=== PATIENT | female | born 1970 | race Hispanic/Latino ===

== ENCOUNTER 2018-02-07 11:34 | Emergency (ER) | payer OTHER ==
[~2018-02-07] VITALS: Ht 162.6 cm; Wt 78.0 kg
[~2018-02-07 11:34] MED LIST: AMOXICILLIN500 M2 PO; PREDNISONE20 MG PO; ULTRAM50 M1 PO; ZITHROMAX250 MG PO
[2018-02-07] MEDS ORDERED: AMLODIPINE5 MG PO (11:43)
[2018-02-07 12:36] LABS: IMMATURE GRANULOCYTES 0.2 % (0.0-1.0); MEAN CELL VOLUME 89.5 fL CALC (80.0-100.0); MEAN CORPUSCULAR HGB 29.7 pG CALC (26.0-32.0); MEAN CORPUSCULAR HGB CONC 33.3 g/L CALC (32.0-36.0); NEUT# 2.55 thou/uL (2.00-7.15); RED BLOOD COUNT 4.74 mill/uL (4.20-5.60)
[2018-02-07 12:41] LABS: HEMATOCRIT 42.4 % (37.0-47.0); HEMOGLOBIN 14.1 g/dl (12.0-16.0)
[2018-02-07 12:46] LABS: BUN 9 mg/dL (7-17); BUN/CREATININE RATIO 15 (12-20 (CALC)); CARBON DIOXIDE 27 mmol/l (22-30); CHLORIDE 105 mmol/l (95-108); CREATININE 0.6 mg/dL (0.5-1.0); GFR > 60 ML/MIN (>=60 (CALC)); GFR FOR AFR.AMER. > 60 ML/MIN (>=60 (CALC)); POTASSIUM 3.4 mmol/l (3.5-5.1)
[2018-02-07 12:48] LABS: ANION GAP 18 (6-22 (CALC)); SODIUM 147 mmol/l (137-146)
[2018-02-07] MEDS ORDERED: POTASSIUM CHLO20 ME1 PO (13:34)
[2018-02-07 13:39] VITALS: BP 139/63
== END 2018-02-07 13:45 | disposition home or self-care (01) | DRG 103 ==
LOC: ED 11:34
PROVIDERS: Family Medicine
DX: G43.909 Migraine, unspecified, not intractable, without status migrainosus (principal); E87.6 Hypokalemia; I10 Essential (primary) hypertension